=== PATIENT | female | born 1980 | race Caucasian/White ===

== ENCOUNTER 2018-03-14 03:36 | Emergency (ER) | payer MEDICAID ==
[~2018-03-14] VITALS: Ht 152.4 cm; Wt 73.6 kg
[2018-03-14] MEDS ORDERED: FERROUS SULFATE (03:43)
[2018-03-14] MEDS ORDERED: HYDR-3307 PO (03:43)
[2018-03-14] MEDS ORDERED: DEXAMETHASONE 4 MG TABLET ONE (04:01)
[2018-03-14] MEDS ORDERED: DEXAMETHASONE 1 MG TABLET PO STA (04:01)
[2018-03-14] MEDS ORDERED: IBUPROFEN 200 MG TABLET ONE (04:01)
[2018-03-14] MEDS ORDERED: AZITHROMYCIN 500 MG TABLET ONE (04:04)
[2018-03-14] MEDS ORDERED: BENZONATATE 100 MG CAPSULE ONE (04:05)
[2018-03-14] MEDS ORDERED: AZITHROMYCIN 500 MG TABLET PO ONE (04:30)
[2018-03-14] MEDS ORDERED: BENZONATATE 100 MG CAPSULE PO ONE (04:30)
[2018-03-14] MEDS ORDERED: IBUPROFEN 200 MG TABLET PO ONE (04:30)
[2018-03-14 04:36] VITALS: BP 101/65
== END 2018-03-14 04:52 | disposition home or self-care (01) ==
LOC: ED 04:49
DX: J02.0 Streptococcal pharyngitis (principal); J20.8 Acute bronchitis due to other specified organisms; B97.89 Other viral agents as the cause of diseases classified elsewhere; F17.210 Nicotine dependence, cigarettes, uncomplicated; Z88.1 Allergy status to other antibiotic agents; Z88.0 Allergy status to penicillin
CPT/HCPCS: 71046; 99284